=== PATIENT | male | born 1985 | race African-American/Black ===

== ENCOUNTER 2022-02-08 01:08 | Emergency (ER) | payer OTHER ==
[~2022-02-08] VITALS: Ht 188 cm; Wt 80.7 kg
[2022-02-08 01:20] VITALS: BP 133/63
[2022-02-08] MEDS ORDERED: GUAI-735 MT (04:20)
[2022-02-08] MEDS ORDERED: TOPUD PO (04:20)
[2022-02-08] MEDS ORDERED: IBUP-2028 MT (04:20)
== END 2022-02-08 04:50 | disposition home or self-care (01) ==
LOC: ER 01:08
DX: R05.9 Cough, unspecified (principal); J06.9 Acute upper respiratory infection, unspecified; R09.81 Nasal congestion; Z20.822 Contact with and (suspected) exposure to COVID-19
CPT/HCPCS: 71045; 87426; 87804; 99284; C9803